=== PATIENT | male | born 1945 | race Caucasian/White ===

== ENCOUNTER 2020-12-13 15:32 | Emergency (ER) | payer MEDICARE, SELFPAY ==
[2020-12-13 15:42] VITALS: BP 171/72; PULSE 53; RESP 21; TEMP 36.8; O2SAT 97
--- NOTE | 2020-12-13 15:43 | ED.MALEGU ---
HPI - Male Genitourinary General Chief complaint: Urogenital-Male Stated complaint: uti Time Seen by Provider: 12/13/20 15:43 Source: patient and RN notes reviewed Mode of arrival: ambulatory Limitations: no limitations History of Present Illness HPI Narrative: 75-year-old male presents to the [facility] with complaints of urinary symptoms for the last 5 or 6 days. Patient has a history of enlarged prostate and states he does get UTIs every now and then. Patient also is concerned about his right lower leg. Patient states that he has been taking his furosemide and his left leg the swelling went away but the right leg did not. Denies any injury. Mid calf to toes +2 edema, pitting red, warm to touch. States that he has been taking his furosemide and it is not getting any better. Patient denies any fevers, nausea, vomiting or diarrhea. Denies any chest pain or shortness of breath. Related Data Home Medications Medication Instructions Recorded Confirmed clopidogrel 75 mg PO DAILY 12/13/20 12/13/20 furosemide 40 mg PO DAILY 12/13/20 12/13/20 hydrochlorothiazide 12.5 mg PO DAILY 12/13/20 12/13/20 nebivolol [Bystolic] 10 mg PO DAILY 12/13/20 12/13/20 pravastatin 40 mg PO DAILY 12/13/20 12/13/20 ramipril 10 mg PO DAILY 12/13/20 12/13/20 tamsulosin 0.4 mg PO DAILY 12/13/20 12/13/20 Allergies Allergy/AdvReac Type Severity Reaction Status Date / Time No Known Allergies Allergy Mild Unverified 12/13/20 16:12 Review of Systems Review of Systems: All systems reviewed & are unremarkable except as noted in HPI and below Constitutional: Constitutional: Reports no additional constitutional complaints, Denies chills and Denies fever(s) Eyes: Eyes: Reports no additional eye complaints ENT: Reports system reviewed and no additional complaints, except as documented Cardiovascular: Cardiovascular: Reports no additional cardiovascular complaints and Denies chest pain Respiratory: Respiratory: Reports no additional respiratory complaints, Denies cough and Denies dyspnea Gastrointestinal: Gastrointestinal: Reports no additional gastrointestinal complaints, Denies abdominal pain, Denies nausea and Denies vomiting Genitourinary: Genitourinary: Reports as per HPI, Reports dysuria, Denies testicular pain and Reports urinary frequency Musculoskeletal: Musculoskeletal: Reports as per HPI Comments: Right mid calf to toes red, discolored, +2 pitting edema Integumentary/Breasts: Skin/Breast: Reports as per HPI and Reports erythema (Right lower leg) Neurologic: Reports system reviewed and no additional complaints, except as documented Psychiatric: Psychiatric: Reports no additional psychiatric complaints Allergic/Immunologic: Allergic/Immunologic: Reports no additional allergic/immunologic complaints [facility] Past Medical History Medical History (Updated 12/13/20 @ 19:14 by Kerri Lawrence) Enlarged prostate History of recurrent UTIs Hypertension Social History Social History Alcohol intake: current Comments At the time of my signature, I reviewed and agree with the nursing past medical, surgical, social, and family history. There is no relevant family history pertinent to the patient complaint. Exam Const: General: no acute distress, alert and ill appearing chronically Orientation/consciousness: patient oriented x3 Neck: Neck: normal visual inspection and no lymphadenopathy Chest: Chest palpation & inspection: normal inspection of the chest Resp: Effort & Inspection: normal respiratory effort Auscultation: clear to auscultation bilaterally Cardio: Rate: regular rate Rhythm: regular rhythm GI: GI Palp: Yes Soft to palpation and No Tenderness to palpation present (GI) Back/Spine/Pelvis: Back: no CVA tenderness Skin: Other: Redness noted to the right lower extremity. Bruising noted to the ED lateral aspect right lower leg. +2 pitting edema Neuro: General: patient oriented x3, move
== END 2020-12-13 16:30 | disposition short-term general hospital (02) ==
PROVIDERS: Emergency Provider Nurse Practitioner
DX: N30.01 Acute cystitis with hematuria (principal); R60.0 Localized edema; N40.0 Benign prostatic hyperplasia without lower urinary tract symptoms; I10 Essential (primary) hypertension
CPT/HCPCS: 81003; 99212; G0463

== ENCOUNTER 2020-12-13 17:04 | Emergency (ER) | payer MEDICARE, SELFPAY ==
--- NOTE | ~2020-12-13 | XR_ITS ---
EXAMINATION: XR ankle RT min 3V, XR foot RT min 3V DATE: 12/13/2020 18:52 INDICATION: Lateral ankle swelling post twisting injury TECHNIQUE: 1. Anteroposterior, mortise, additional oblique and lateral view of the right ankle were obtained. 2. Dorsoplantar, two oblique and lateral views of the right foot were obtained. COMPARISON: None. FINDINGS: Alignment of the right foot and ankle is normal. Nondisplaced oblique fracture of the distal right fi bula which exits the medial cortex at the level of the tibiotalar joint line. No fractures in the rig ht foot. Moderate osteoarthritis with subarticular cystic change at the first-third tarsal metatarsal joints. Mild osteoarthritis at the right tibiotalar, first metatarsophalangeal and several interphal angeal joints. Additional subarticular cystic changes at the talar dome both medially and laterally. No ankle joint effusion. Prominent soft tissue swelling over the dorsum of the foot extending about t he ankle both medially and laterally. IMPRESSION: 1. Minimally displaced oblique fracture of the distal left fibula consistent with a Vargas type B inju ry pattern. 2. 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 Reviewed, dictated and finalized at location A. IMPRESSION: 1. Minimally displaced oblique fracture of the distal left fibula consistent wi th a Vargas type B injury pattern. 2. 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
[2020-12-13 17:10] VITALS: BP 108/85; PULSE 94; RESP 18; TEMP 36.7; O2SAT 96
--- NOTE | 2020-12-13 18:34 | ED.LOWEXIN ---
HPI - Extremity Injury (Lower) General Chief Complaint: Extremity Injury, Lower Stated Complaint: R ankle pain/swelling from express care Time Seen by Provider: 12/13/20 18:25 Source: patient and RN notes reviewed Mode of arrival: ambulatory Limitations: no limitations History of Present Illness HPI Narrative: Patient 75 years old white male presents with right ankle injury, patient got out of bed and go to the bathroom, somehow twisted right ankle during that process on December 02. Which is 11 days ago. Patient went to urgent care today for urinary tract infection, then referred to us because of the swelling ankle. Patient reports initially the ankle was so painful and gradually is getting better. Patient denies any fever, chills, nausea, vomiting, shortness of breath, chest pain. Patient is fully vaccinated for COVID-19. Patient is telling me that his urine at the urgent care showed infection and was told that he would receive a prescription of antibiotic when he comes to us today. Currently patient unable to urinate. Related Data Home Medications Medication Instructions Recorded Confirmed clopidogrel 75 mg PO DAILY 12/13/20 12/13/20 furosemide 40 mg PO DAILY 12/13/20 12/13/20 hydrochlorothiazide 12.5 mg PO DAILY 12/13/20 12/13/20 nebivolol [Bystolic] 10 mg PO DAILY 12/13/20 12/13/20 pravastatin 40 mg PO DAILY 12/13/20 12/13/20 ramipril 10 mg PO DAILY 12/13/20 12/13/20 tamsulosin 0.4 mg PO DAILY 12/13/20 12/13/20 Allergies Allergy/AdvReac Type Severity Reaction Status Date / Time No Known Allergies Allergy Mild Unverified 12/13/20 16:12 Review of Systems Review of Systems: CONSTITUTIONAL: Denies fever, chills, or sweats. EYES: Denies visual changes, redness, or discharge. ENT: Denies rhinorrhea, congestion, sore throat, or otalgia. CARDIOVASCULAR: Denies chest pain, palpitations, or edema. RESPIRATORY: Denies cough or dyspnea. GASTROINTESTINAL: Denies abdominal pain, nausea, vomiting, or diarrhea. GENITOURINARY: Denies dysuria or hematuria. SKIN: Denies rash or itching. MUSCULOSKELETAL: Denies back pain, joint pain, or myalgia. NEUROLOGIC: Denies headache, numbness, or weakness. PSYCHIATRIC: Denies anxiety or depression. [facility] Past Medical History Medical History (Updated 12/13/20 @ 21:20 by Kymberly Love MD) Enlarged prostate History of recurrent UTIs Hypertension Social History Social History Alcohol intake: current Exam Narrative: General appearance: Well-developed, well-nourished Skin: Normal color Head: Normocephalic, nontraumatic Eyes: Clear conjunctiva ENT: Oropharynx normal, ears normal, nose normal Neck: Supple, nontender Chest and respiratory: Airway patent, no respiratory distress, no accessory muscle use Heart: Regular rate/rhythm Abdomen: Soft, nontender, no organomegaly, quiet bowel sounds Vascular: Normal peripheral pulses, normal capillary refill. Musculoskeletal: Normal range of motion, nontender back. Right ankle and foot showed 2+ edema, ecchymosis, no deformity, no tenderness or swelling above that level. Neurologic: Alert and oriented ?3, [employer]IDENCE DIRECT[employer] is normal as tested, no gross motor deficit Course Course Emergency Course: Stable Vital Signs Vital signs: Vital Signs Temperature 36.7 C 12/13/20 17:10 Pulse Rate 94 12/13/20 17:10 Respiratory Rate 18 12/13/20 17:10 Blood Pressure 108/85 12/13/20 17:10 Pulse Oximetry 96 12/13/20 17:10 Temperature 36.7 C 12/13/20 17:10 Pulse Rate 94 12/13/20 17:10 Respiratory Rate 18 12/13/20 17:10 Blood Pressure 108/85 12/13/20 17:10 Pulse Oximetry 96 12/13/20 17:10 MDM - Extremity
[2020-12-13 21:35] VITALS: BP 118/72; PULSE 82; RESP 20; O2SAT 98
== END 2020-12-13 21:35 | disposition home or self-care (01) ==
PROVIDERS: Emergency Provider Emergency Medicine
DX: I10 Essential (primary) hypertension (principal); S82.831A Other fracture of upper and lower end of right fibula, initial encounter for closed fracture; N39.0 Urinary tract infection, site not specified; X50.1XXA Overexertion from prolonged static or awkward postures, initial encounter
CPT/HCPCS: 29515; 73610; 73630; 81003; 99284

== ENCOUNTER 2021-05-28 17:04 | Emergency (ER) | payer MEDICARE, SELFPAY ==
[2021-05-28 17:16] VITALS: BP 201/76; PULSE 78; RESP 17; TEMP 36.5; O2SAT 100
--- NOTE | 2021-05-28 17:29 | ED.MALEGU ---
HPI - Male Genitourinary General Chief complaint: Urogenital-Male Stated complaint: UTI Time Seen by Provider: 05/28/21 17:15 Source: patient, RN notes reviewed and old records reviewed Mode of arrival: ambulatory Limitations: no limitations History of Present Illness HPI Narrative: 75-year-old male with a history of prostate issues and UTIs presents for several days of dysuria, frequency, urgency and burning. Patient states that when he wants to go out he stopped taking his furosemide, Flomax and hydrochlorothiazide. MD Complaint: dysuria Related Data Home Medications Medication Instructions Recorded Confirmed clopidogrel 75 mg PO DAILY 12/13/20 05/28/21 furosemide 40 mg PO DAILY 12/13/20 05/28/21 hydrochlorothiazide 12.5 mg PO DAILY 12/13/20 05/28/21 nebivolol [Bystolic] 10 mg PO DAILY 12/13/20 05/28/21 pravastatin 40 mg PO DAILY 12/13/20 05/28/21 ramipril 10 mg PO DAILY 12/13/20 05/28/21 tamsulosin 0.4 mg PO DAILY 12/13/20 05/28/21 Allergies Allergy/AdvReac Type Severity Reaction Status Date / Time No Known Allergies Allergy Mild Verified 01/16/21 11:38 Review of Systems Review of Systems: All systems reviewed & are unremarkable except as noted in HPI and below Constitutional: Constitutional: Reports no additional constitutional complaints Eyes: Eyes: Reports no additional eye complaints ENT: Reports system reviewed and no additional complaints, except as documented Cardiovascular: Cardiovascular: Reports no additional cardiovascular complaints and Denies chest pain Respiratory: Respiratory: Reports no additional respiratory complaints, Reports no additional respiratory complaints, Denies chest congestion, Denies cough and Denies dyspnea Gastrointestinal: Gastrointestinal: Reports no additional gastrointestinal complaints, Denies abdominal pain and Denies belching Genitourinary: Genitourinary: Reports as per HPI, Denies hematuria, Reports oliguria, Reports dysuria, Denies flank pain, Reports urinary frequency and Reports urinary urgency Musculoskeletal: Musculoskeletal: Reports no additional musculoskeletal complaints, Denies back pain and Denies myalgias Integumentary/Breasts: Skin/Breast: Reports system reviewed and no additional complaints, except as docu Neurologic: Reports system reviewed and no additional complaints, except as documented Psychiatric: Psychiatric: Reports no additional psychiatric complaints Allergic/Immunologic: Allergic/Immunologic: Reports no additional allergic/immunologic complaints PMFSH Past Medical History Medical History Enlarged prostate History of cataract History of recurrent UTIs Hypertension Surgical History Surgical History History of hernia repair Social History Social History Smoking status: Unknown if ever smoked Alcohol intake: current Comments At the time of my signature, I reviewed and agree with the nursing past medical, surgical, social, and family history. There is no relevant family history pertinent to the patient complaint. Exam Const: General: cooperative, no acute distress, alert, ill appearing chronically and poor hygiene Nutritional Appearance: average body habitus Orientation/consciousness: patient oriented x3 Limitations: no limitations Eyes: General: appearance normal, both eyes and all related structures Alignment and Position: alignment normal Chest: Chest palpation & inspection: normal inspection of the chest Resp: Effort & Inspection: normal respiratory effort Back/Spine/Pelvis: Back: no CVA tenderness Skin: General skin exam: normal color Rashes: no rashes Neuro: General: patient oriented x3 Speech: normal speech Gait exam (Neuro): Normal gait present Extrem: General: normal to inspection and full ROM Psych: Appearance: grossly normal and disheveled Attitude: c
[2021-05-28 17:30] VITALS: BP 162/84
== END 2021-05-28 17:38 | disposition home or self-care (01) ==
PROVIDERS: Emergency Provider Nurse Practitioner; PCP Internal Medicine
DX: N39.0 Urinary tract infection, site not specified (principal); N40.0 Benign prostatic hyperplasia without lower urinary tract symptoms; I10 Essential (primary) hypertension; H26.9 Unspecified cataract
CPT/HCPCS: 81003; 87077; 87086; 87181; 87186; 99213; G0463

== ENCOUNTER 2022-01-25 13:52 | Emergency (ER) | payer MEDICARE, SELFPAY ==
--- NOTE | 2022-01-25 13:58 | ED.FEMALEGU ---
HPI - Female Genitourinary General Chief complaint: Urogenital-Male Stated complaint: painful urination Time Seen by Provider: 01/25/22 14:20 Source: patient and RN notes reviewed Mode of arrival: ambulatory Limitations: no limitations History of Present Illness HPI Narrative: 76-year-old male presents with concern for burning with urination. He reports 3 to 4-day history of symptoms. He reports he had to take a diuretic for another reason which caused him ear splints. He denies back pain, abdominal pain, nausea, vomiting, fever, bodies, chills, sweats. He denies hematuria or urgency. MD elicited complaint: dysuria Related Data Home Medications Medication Instructions Recorded Confirmed clopidogrel 75 mg tablet 75 mg PO DAILY 12/13/20 01/25/22 furosemide 40 mg tablet 40 mg PO DAILY 12/13/20 01/25/22 nebivolol 10 mg tablet (Bystolic) 10 mg PO DAILY 12/13/20 01/25/22 pravastatin 40 mg tablet 40 mg PO DAILY 12/13/20 01/25/22 tamsulosin 0.4 mg capsule 0.4 mg PO DAILY 12/13/20 01/25/22 amlodipine 10 mg tablet 10 mg DIRECTED 01/25/22 01/25/22 ezetimibe 10 mg tablet 10 mg DIRECTED 01/25/22 01/25/22 sacubitril 24 mg-valsartan 26 mg 1 tablet DIRECTED 01/25/22 01/25/22 tablet (Entresto) Allergies Allergy/AdvReac Type Severity Reaction Status Date / Time No Known Allergies Allergy Mild Verified 01/16/21 11:38 Review of Systems Review of Systems: CONSTITUTIONAL: Denies malaise, chills, sweats, or fever. CARDIOVASCULAR: Denies chest pain, palpitations, or edema. RESPIRATORY: Denies cough or dyspnea. GASTROINTESTINAL: Denies abdominal pain, nausea, vomiting, diarrhea GENITOURINARY: Reports dysuria, frequency. Denies urgency, suprapubic pressure. Denies flank pain or hematuria. SKIN: Denies rash or itching. MUSCULOSKELETAL: Denies back pain or myalgia. All systems reviewed & are unremarkable except as noted in HPI and below PMFSH Past Medical History Medical History Enlarged prostate History of cataract History of recurrent UTIs Hypertension Surgical History Surgical History History of hernia repair Social History Social History Smoking status: Unknown if ever smoked Alcohol intake: current Comments At time of signature, agree with nursing past medical, surgical, social and family history. There is no relevant family history pertinent to the presenting complaint Exam Narrative: GENERAL: Well-appearing, well-nourished, and in no acute distress. HEAD: Normocephalic. EYES: PERRLA, conjunctivae clear. NECK: Supple. No lymphadenopathy CHEST: Clear to auscultation. No respiratory distress. HEART: Regular rate and rhythm. ABDOMEN: Soft, nontender upon palpation, nondistended, normal active bowel sounds, no palpable or pulsatile masses, no guarding. No CVA tenderness SKIN: Warm, dry, no rash. NEURO: Alert and oriented x3. PSYCH: Normal mood and affect Course Course Emergency Course: Patient is aware of diagnosis, understands and agrees to treatment plan. Anticipatory guidance given. Patient agrees to follow-up as directed and is aware of reasons to seek care at the emergency department. Portions of this record may have been created with voice recognition software Level of Care: Express Care Visit Vital Signs Vital signs: Vital Signs Temperature 97.3 F L 01/25/22 14:04 Pulse Rate 66 01/25/22 14:04 Respiratory Rate 18 01/25/22 14:04 Blood Pressure 168/58 H 01/25/22 14:04 Pulse Oximetry 99 01/25/22 14:04 Oxygen Delivery Room Air 01/25/22 14:04 Temperature 97.3 F L 01/25/22 14:04 Pulse Rate 66 01/25/22 14:04 Respiratory Rate 18 01/25/22 14:04 Blood Pressure 168/58 H 01/25/22 14:04 Pulse Oximetry 99 01/25/22 14:04 Oxygen Delivery Room Air 01/25/22 14:04 Reviewed. MDM - Female Genitourinary
[2022-01-25 14:04] VITALS: BP 168/58; PULSE 66; RESP 18; TEMP 36.3; O2SAT 99
== END 2022-01-25 14:38 | disposition home or self-care (01) ==
PROVIDERS: Emergency Provider Nurse Practitioner; PCP Internal Medicine
DX: N39.0 Urinary tract infection, site not specified (principal); I10 Essential (primary) hypertension
CPT/HCPCS: 81003; 87086; 87088; 99213; G0463

== ENCOUNTER 2022-05-15 11:35 | Emergency (ER) | payer MEDICARE, SELFPAY ==
--- NOTE | 2022-05-15 11:46 | PC.NURSE ---
in br to obtain ua spec.
[2022-05-15 11:57] VITALS: BP 125/62; PULSE 58; RESP 16; TEMP 36.6; O2SAT 97
--- NOTE | 2022-05-15 12:25 | ED.MALEGU ---
HPI - Male Genitourinary General Chief complaint: Urogenital-Male Stated complaint: uti Time Seen by Provider: 05/15/22 12:25 Source: patient, RN notes reviewed and old records reviewed Mode of arrival: ambulatory Limitations: no limitations History of Present Illness HPI Narrative: 76-year-old male presents to the [facility] with for 5 days of urinary frequency, irritation, feeling like he does not empty his bladder. Has a history of prostate issues. Denies any chest pain or abdominal pain. No nausea vomiting or diarrhea. Denies fevers Has not taken anything for pain Onset (ago): day(s) (4-5) Related Data Home Medications Medication Instructions Recorded Confirmed clopidogrel 75 mg tablet 75 mg PO DAILY 12/13/20 01/25/22 furosemide 40 mg tablet 40 mg PO DAILY 12/13/20 01/25/22 nebivolol 10 mg tablet (Bystolic) 10 mg PO DAILY 12/13/20 01/25/22 pravastatin 40 mg tablet 40 mg PO DAILY 12/13/20 01/25/22 tamsulosin 0.4 mg capsule 0.4 mg PO DAILY 12/13/20 01/25/22 amlodipine 10 mg tablet 10 mg DIRECTED 01/25/22 01/25/22 ezetimibe 10 mg tablet 10 mg DIRECTED 01/25/22 01/25/22 sacubitril 24 mg-valsartan 26 mg 1 tablet DIRECTED 01/25/22 01/25/22 tablet (Entresto) Allergies Allergy/AdvReac Type Severity Reaction Status Date / Time niacin Allergy Flushing Verified 05/15/22 11:54 Review of Systems Review of Systems: All systems reviewed & are unremarkable except as noted in HPI and below Constitutional: Constitutional: Reports no additional constitutional complaints Eyes: Eyes: Reports no additional eye complaints ENT: Reports system reviewed and no additional complaints, except as documented Cardiovascular: Cardiovascular: Reports no additional cardiovascular complaints, Denies chest pain and Denies dyspnea Respiratory: Respiratory: Reports no additional respiratory complaints, Denies chest congestion, Denies cough and Denies dyspnea Gastrointestinal: Gastrointestinal: Reports no additional gastrointestinal complaints, Denies abdominal pain, Denies nausea and Denies vomiting Genitourinary: Genitourinary: Reports as per HPI and Reports dysuria Musculoskeletal: Musculoskeletal: Reports no additional musculoskeletal complaints Integumentary/Breasts: Skin/Breast: Reports system reviewed and no additional complaints, except as docu Neurologic: Reports system reviewed and no additional complaints, except as documented Psychiatric: Psychiatric: Reports no additional psychiatric complaints Allergic/Immunologic: Allergic/Immunologic: Reports no additional allergic/immunologic complaints PMFSH Past Medical History Medical History Enlarged prostate History of cataract History of recurrent UTIs Hypertension Surgical History Surgical History History of hernia repair Social History Social History Smoking status: Unknown if ever smoked Alcohol intake: current Comments At the time of my signature, I reviewed and agree with the nursing past medical, surgical, social, and family history. There is no relevant family history pertinent to the patient complaint. Exam Const: General: cooperative, no acute distress, well developed, alert, ill appearing chronically; not acutely, poor hygiene, uncomfortable and well nourished Nutritional Appearance: well nourished Orientation/consciousness: patient oriented x3 Limitations: no limitations HENMT: Head: normal to inspection Ears: hearing grossly normal bilaterally and external ears normal Face/Nose/Sinus: Normal external nose present, Normal nares present, Normal nasal mucous membranes and turbinates present and normal facial exam Face and sinus: normal facial exam Mouth: Yes Normal oral and palatal mucosa present, Yes lip normal and Yes moist mucous membranes Throat: posterior oropharynx normal and
== END 2022-05-15 12:35 | disposition home or self-care (01) ==
PROVIDERS: Emergency Provider Nurse Practitioner; PCP Internal Medicine
DX: N30.01 Acute cystitis with hematuria (principal); N40.0 Benign prostatic hyperplasia without lower urinary tract symptoms; I10 Essential (primary) hypertension
CPT/HCPCS: 81003; 87086; 87088; 99213; G0463

== ENCOUNTER 2022-08-14 18:07 | Emergency (ER) | payer MEDICARE, MEDICAID, SELFPAY ==
--- NOTE | 2022-08-14 18:18 | PC.NURSE ---
in br to obtain ua spec.
[2022-08-14 18:27] VITALS: BP 124/59; PULSE 57; RESP 16; TEMP 36.3; O2SAT 97
--- NOTE | 2022-08-14 18:45 | ED.GENADULT ---
HPI - General Adult General Chief complaint: Urogenital-Male Stated complaint: UTI Source: patient Mode of arrival: ambulatory Limitations: no limitations History of Present Illness HPI narrative: Patient presents for evaluation of urinary symptoms. He indicates that he has chronic urinary hesitancy secondary to BPH, for which he takes flomax. He also has urinary frequency which he attributes to his diuretic use. He has noted dysuria only at the end of his urinary stream for the last 1-1.5 weeks. His urine appears cloudy. He denies any hematuria, low back pain, abdominal pain, fever, chills, nausea, vomiting. He has had urinary tract infections in the past. Related Data Home Medications Medication Instructions Recorded Confirmed clopidogrel 75 mg tablet 75 mg PO DAILY 12/13/20 01/25/22 furosemide 40 mg tablet 40 mg PO DAILY 12/13/20 01/25/22 nebivolol 10 mg tablet (Bystolic) 10 mg PO DAILY 12/13/20 01/25/22 pravastatin 40 mg tablet 40 mg PO DAILY 12/13/20 01/25/22 tamsulosin 0.4 mg capsule 0.4 mg PO DAILY 12/13/20 01/25/22 amlodipine 10 mg tablet 10 mg DIRECTED 01/25/22 01/25/22 ezetimibe 10 mg tablet 10 mg DIRECTED 01/25/22 01/25/22 sacubitril 24 mg-valsartan 26 mg 1 tablet DIRECTED 01/25/22 01/25/22 tablet (Entresto) spironolactone 50 mg tablet mg 08/14/22 Allergies Allergy/AdvReac Type Severity Reaction Status Date / Time niacin Allergy Flushing Verified 08/14/22 18:14 Review of Systems Review of Systems: CONSTITUTIONAL: Denies fever, chills, or sweats. EYES: Denies visual changes, redness, or discharge. ENT: Denies rhinorrhea, congestion, sore throat, or otalgia. CARDIOVASCULAR: Denies chest pain, palpitations, or edema. RESPIRATORY: Denies cough or dyspnea. GASTROINTESTINAL: Denies abdominal pain, nausea, vomiting, or diarrhea. GENITOURINARY: Reports cloudy urine and dysuria only at the end of urinary stream. Reports chronic urinary hesitancy and urinary frequency. SKIN: Denies rash or itching. MUSCULOSKELETAL: Denies back pain, joint pain, or myalgia. NEUROLOGIC: Denies headache, numbness, dizziness, or weakness. PSYCHIATRIC: Denies anxiety or depression. [facility] Past Medical History Medical History Enlarged prostate History of cataract History of recurrent UTIs Hypertension Surgical History Surgical History History of hernia repair Family History Family History Mother Family history non-contributory Social History Social History Smoking packs per day: 1 Smoking cigarettes per day: 20.0 Smoking status: Current every day smoker Tobacco type: cigarettes Alcohol intake: current Substance use: never Living arrangements: alone Gender identity (if verbalized by the patient): Male Exam Narrative: GENERAL: Well-appearing, well-nourished, and in no acute distress. HEAD: Normocephalic, atraumatic. EYES: PERRLA and EOMI. ENT: Nares clear, no rhinorrhea or epistaxis. Mucous membranes moist. Oropharynx without tonsillar hypertrophy exudate or other lesions. Bilateral TMs pearly denis nonbulging NECK: Supple. No adenopathy or masses. No carotid bruits or JVD CHEST: Clear to auscultation. No respiratory distress. No wheezes rales or rhonchi HEART: Regular rate and rhythm. No murmur heard. Normal peripheral pulses. ABDOMEN: Soft, nontender, nondistended, normal active bowel sounds. EXTREMITIES: Normal range of motion. No edema. SKIN: Warm, dry, no rash. NEURO: No focal deficits. Alert and oriented x3. PSYCH: Normal mood and affect. Course Course Emergency Course: This is a 76-year-old male who presented for evaluation of dysuria and cloudy colored urine. He has leukocytes present on urine today. Will send for urine culture.
== END 2022-08-14 18:48 | disposition home or self-care (01) ==
PROVIDERS: Emergency Provider Nurse Practitioner; PCP Internal Medicine
DX: N39.0 Urinary tract infection, site not specified (principal); N40.0 Benign prostatic hyperplasia without lower urinary tract symptoms; I10 Essential (primary) hypertension; H26.9 Unspecified cataract; F17.210 Nicotine dependence, cigarettes, uncomplicated
CPT/HCPCS: 81003; 87086; 99213; G0463

== ENCOUNTER 2023-02-25 13:38 | Emergency (ER) | payer MEDICARE, MEDICAID, SELFPAY ==
--- NOTE | ~2023-02-25 | XR_ITS ---
XR abdomen/kub 1V 02/25/2023 15:20 Indication: Constipation Procedure: KUB Comparison: No prior studies for comparison. Findings: There are bilateral calcifications overlying the kidneys which may represent renal stones o r vascular calcifications. There is severe lumbar spondylosis with levoscoliosis. There is atheroscle rosis in the pelvis. Nonobstructive bowel gas pattern. Moderate colonic fecal loading. Impression: 1: Ill-defined calcifications overlying the kidneys which may be vascular or renal stones. Reviewed, dictated and finalized at location B. Impression: 1: Ill-defined calcifications overlying the kidneys which may be vascular or re nal stones.
[2023-02-25 13:53] VITALS: BP 154/101; PULSE 104; RESP 20; TEMP 36.6; O2SAT 97
[2023-02-25 15:24] LABS: Appearance Urine Cloudy (Clear); Bacteria Urine 4+ /hpf; Bilirubin Urine Negative (Negative); Blood Urine 3+ (Negative); Color Urine Yellow (Yellow); Glucose Urine UA Trace mg/dL (Negative); Ketones Urine Negative (Negative); Leukocyte Esterase Ur 2+ LEU/UL (Negative); Nitrate Urine Negative (Negative); Non Pathogenic Casts 0-2; Protein Urine Trace mg/dL (Negative); RBC Urine >100 /hpf (0-2); Squamous Epithelial Cell Urine None seen /hpf (Few); WBC Urine 21-50 /hpf; pH Urine 6.5 (5.0-9.0)
[2023-02-25 15:30] LABS: Add Urine Microscopic? YES
--- NOTE | 2023-02-25 16:12 | ED.ABDPAIN ---
HPI - Abdominal Pain General Chief Complaint: Abdominal Pain Stated Complaint: constipated X2 days-problem urination Time Seen by Provider: 02/25/23 14:42 History of Present Illness HPI narrative: Pt says he has been unable to void well for awhile but is now having trouble voiding at all and has lower abdominal pain. Pt says he also is constipated. Pt denies vomiting or black or bloody stools. Pt had malave placed after bladder scan revealed 800 ml of urine in bladder and pt pain resolved. Pt on flomax but never seen urologist. Related Data Home Medications Medication Instructions Recorded Confirmed clopidogrel 75 mg tablet 75 mg PO DAILY 12/13/20 01/25/22 furosemide 40 mg tablet 40 mg PO DAILY 12/13/20 01/25/22 nebivolol 10 mg tablet (Bystolic) 10 mg PO DAILY 12/13/20 01/25/22 pravastatin 40 mg tablet 40 mg PO DAILY 12/13/20 01/25/22 tamsulosin 0.4 mg capsule 0.4 mg PO DAILY 12/13/20 01/25/22 amlodipine 10 mg tablet 10 mg DIRECTED 01/25/22 01/25/22 ezetimibe 10 mg tablet 10 mg DIRECTED 01/25/22 01/25/22 sacubitril 24 mg-valsartan 26 mg 1 tablet DIRECTED 01/25/22 01/25/22 tablet (Entresto) spironolactone 50 mg tablet mg 08/14/22 Allergies Allergy/AdvReac Type Severity Reaction Status Date / Time niacin Allergy Flushing Verified 02/25/23 13:38 PMFSH Past Medical History Medical History Enlarged prostate History of cataract History of recurrent UTIs Hypertension Surgical History Surgical History History of hernia repair Family History Family History Mother Family history non-contributory Social History Social History Smoking packs per day: 1 Smoking cigarettes per day: 20.0 Smoking status: Current every day smoker Tobacco type: cigarettes Alcohol intake: current Substance use: never Living arrangements: alone Gender identity (if verbalized by the patient): Male Exam Const: General: healthy appearing Nutritional Appearance: thin Orientation/consciousness: patient oriented x3 Limitations: no limitations Resp: Effort & Inspection: normal respiratory effort Auscultation: clear to auscultation bilaterally Cardio: Rate: regular rate Rhythm: regular rhythm GI: GI Palp: Yes Soft to palpation and No Tenderness to palpation present (GI) (malave already placed) Auscultation: normal bowel sounds Rectal Exam: No hemorrhoids : Penis: Yes normal penis (some blood from around malave) Urinary Catheter: Urinary Catheter: patent and draining and urine dark Back/Spine/Pelvis: Back: no CVA tenderness Skin: General skin exam: normal color Wounds: no wounds Neuro: General: patient oriented x3, moves all extremities and no focal motor deficits Cranial nerves: Yes Nystagmus not present Extrem: General: normal to inspection and no clubbing, cyanosis or edema Psych: Mental Status: mental status grossly normal Affect: normal affect Attitude: cooperative Course Vital Signs Vital signs: Vital Signs Temperature 98 F 02/25/23 13:53 Pulse Rate 104 H 02/25/23 13:53 Respiratory Rate 20 02/25/23 13:53 Blood Pressure 154/101 H 02/25/23 13:53 Pulse Oximetry 97 02/25/23 13:53 Oxygen Delivery Room Air 02/25/23 13:53 Temperature 98 F 02/25/23 13:53 Pulse Rate 104 H 02/25/23 13:53 Respiratory Rate 20 02/25/23 13:53 Blood Pressure 154/101 H 02/25/23 13:53 Pulse Oximetry 97 02/25/23 13:53 Oxygen Delivery Room Air 02/25/23 13:53 MDM - Abdominal Pain MDM Narrative Medical decision making narrative: bph with outlet obstruction causing urinary retention possible uti. malave relieved pain. will start on antibiotics and have urology follow up. Lab Data Labs: Lab Results 02/25/23 Range/Units 15:12
--- NOTE | 2023-02-25 17:07 | PC.NURSE ---
This RN changed pts malave bag to a leg bag.
== END 2023-02-25 17:08 | disposition home or self-care (01) ==
PROVIDERS: Emergency Provider Emergency Medicine; PCP Internal Medicine
DX: N40.1 Benign prostatic hyperplasia with lower urinary tract symptoms (principal); R33.8 Other retention of urine; N39.0 Urinary tract infection, site not specified; I10 Essential (primary) hypertension; F17.210 Nicotine dependence, cigarettes, uncomplicated
CPT/HCPCS: 51702; 74018; 81001; 87086; 87088; 99283

== ENCOUNTER 2023-03-09 15:21 | Emergency (ER) | payer MEDICARE, MEDICAID, SELFPAY ==
[2023-03-09 15:27] VITALS: BP 153/67; PULSE 78; RESP 16; TEMP 36.6; O2SAT 96
--- NOTE | 2023-03-09 16:01 | ED.MALEGU ---
HPI - Male Genitourinary General Chief complaint: Urogenital-Male Stated complaint: catheter issues Time Seen by Provider: 03/09/23 15:43 Source: patient Mode of arrival: ambulatory Limitations: no limitations History of Present Illness HPI Narrative: Patient is a 77 y/o male who presents to the ED with c/o catheter problem. Patient was seen in the ED on 02/25 and diagnosed with acute urinary retention. Chan catheter was placed. Patient reports he has been doing well with the catheter, but the StatLock fell off a couple of days ago. Patient was concerned that the Chan catheter with fall out or ripped out if it got caught on something. He presented today due to concern for this. Patient denies any pain, changes in his urine appearance/color/amount, nausea, vomiting, fevers. Patient has follow-up with urology on 03/13. Related Data Home Medications Medication Instructions Recorded Confirmed clopidogrel 75 mg tablet 75 mg PO DAILY 12/13/20 01/25/22 furosemide 40 mg tablet 40 mg PO DAILY 12/13/20 01/25/22 nebivolol 10 mg tablet (Bystolic) 10 mg PO DAILY 12/13/20 01/25/22 pravastatin 40 mg tablet 40 mg PO DAILY 12/13/20 01/25/22 tamsulosin 0.4 mg capsule 0.4 mg PO DAILY 12/13/20 01/25/22 amlodipine 10 mg tablet 10 mg DIRECTED 01/25/22 01/25/22 ezetimibe 10 mg tablet 10 mg DIRECTED 01/25/22 01/25/22 sacubitril 24 mg-valsartan 26 mg 1 tablet DIRECTED 01/25/22 01/25/22 tablet (Entresto) spironolactone 50 mg tablet mg 08/14/22 Allergies Allergy/AdvReac Type Severity Reaction Status Date / Time niacin Allergy Flushing Verified 02/25/23 13:38 Review of Systems Review of Systems: CONSTITUTIONAL: Denies fever, chills, or sweats. GASTROINTESTINAL: Denies abdominal pain, nausea, vomiting. GENITOURINARY: See HPI. MUSCULOSKELETAL: Denies back pain. All systems reviewed & are unremarkable except as noted in HPI and below PMFSH Past Medical History Medical History Enlarged prostate History of cataract History of recurrent UTIs Hypertension Surgical History Surgical History History of hernia repair Family History Family History Mother Family history non-contributory Social History Social History Smoking packs per day: 1 Smoking cigarettes per day: 20.0 Smoking status: Current every day smoker Tobacco type: cigarettes Alcohol intake: current Substance use: never Living arrangements: alone Gender identity (if verbalized by the patient): Male Exam Narrative: GENERAL: Well appearing, well-nourished, non-toxic, in no acute distress. HEAD: Normocephalic, atraumatic. NECK: Supple. No adenopathy, no masses. RESPIRATORY: Airway patent, respirations nonlabored. CARDIOVASCULAR: RRR MUSCULOSKELETAL: Moves all extremities. No gross deformities. SKIN: Warm, dry, normal color. No rashes. NEURO: A&O X3. Speech clear. Cranial nerves II-XII grossly intact. No ataxic movements. PSYCHIATRIC: Appropriate mood and affect. Normal interaction. Course Vital Signs Vital signs: Vital Signs Temperature 97.8 F 03/09/23 15:27 Pulse Rate 78 03/09/23 15:27 Respiratory Rate 16 03/09/23 15:27 Blood Pressure 153/67 H 03/09/23 15:27 Pulse Oximetry 96 03/09/23 15:27 Temperature 97.8 F 03/09/23 15:27 Pulse Rate 78 03/09/23 15:27 Respiratory Rate 16 03/09/23 15:27 Blood Pressure 153/67 H 03/09/23 15:27 Pulse Oximetry 96 03/09/23 15:27 MDM - Male Genitourinary MDM Narrative Medical decision making narrative: Patient presented to ED due to concern that StatLock fell off of Chan catheter. Cahn catheter tubing was changed in the ED, new leg bag given. Patient with follow-up on 03/13 with urology. Patient denying any change
--- NOTE | 2023-03-09 16:05 | PC.NURSE ---
Given a new leg bag at this time
== END 2023-03-09 16:49 | disposition home or self-care (01) ==
LOC: ANHED 16:31
PROVIDERS: Emergency Provider Physician Assistant; PCP Internal Medicine
DX: T83.098A Other mechanical complication of other urinary catheter, initial encounter (principal); I10 Essential (primary) hypertension; N40.0 Benign prostatic hyperplasia without lower urinary tract symptoms; F17.210 Nicotine dependence, cigarettes, uncomplicated; Z87.440 Personal history of urinary (tract) infections; Y84.6 Urinary catheterization as the cause of abnormal reaction of the patient, or of later complication, without mention of misadventure at the time of the procedure
CPT/HCPCS: 99282

== ENCOUNTER 2023-04-01 18:44 | Emergency (ER) | payer MEDICARE, MEDICAID, SELFPAY ==
--- NOTE | 2023-04-01 19:12 | ED.MALEGU ---
HPI - Male Genitourinary General Chief complaint: Urogenital-Male Stated complaint: urinary issue Time Seen by Provider: 04/01/23 19:12 Source: patient Mode of arrival: ambulatory Limitations: no limitations History of Present Illness HPI Narrative: 77-year-old male presents with complaint of urinary frequency, urgency, decreased output. Patient had Chan catheter removed this morning at urology office. States over the for 6 hours after having catheter removed he measured his urine and output was 500-600 mls. He states he began to have urinary urgency, decreased output 4-5 hours ago. Afebrile. [facility] urology office was already closed and he was unable to contact anyone there. No abdominal or back pain. All systems reviewed and negative except as noted above. Related Data Home Medications Medication Instructions Recorded Confirmed clopidogrel 75 mg tablet 75 mg PO DAILY 12/13/20 01/25/22 furosemide 40 mg tablet 40 mg PO DAILY 12/13/20 01/25/22 nebivolol 10 mg tablet (Bystolic) 10 mg PO DAILY 12/13/20 01/25/22 pravastatin 40 mg tablet 40 mg PO DAILY 12/13/20 01/25/22 amlodipine 10 mg tablet 10 mg DIRECTED 01/25/22 01/25/22 ezetimibe 10 mg tablet 10 mg DIRECTED 01/25/22 01/25/22 sacubitril 24 mg-valsartan 26 mg 1 tablet DIRECTED 01/25/22 01/25/22 tablet (Entresto) spironolactone 50 mg tablet mg 08/14/22 finasteride 5 mg tablet mg 04/01/23 tamsulosin 0.4 mg capsule mg PO 04/01/23 Allergies Allergy/AdvReac Type Severity Reaction Status Date / Time niacin Allergy Flushing Verified 02/25/23 13:38 Review of Systems Review of Systems: CONSTITUTIONAL: Denies fever, chills, or sweats. EYES: Denies visual changes, redness, or discharge. ENT: Denies rhinorrhea, congestion, sore throat, or otalgia. CARDIOVASCULAR: Denies chest pain, palpitations, or edema. RESPIRATORY: Denies cough or dyspnea. GASTROINTESTINAL: Denies abdominal pain, nausea, vomiting, or diarrhea. GENITOURINARY: Denies dysuria or hematuria. Reports urinary frequency, urgency, decreased output. SKIN: Denies rash or itching. MUSCULOSKELETAL: Denies back pain, joint pain, or myalgia. NEUROLOGIC: Denies headache, numbness, or weakness. PSYCHIATRIC: Denies anxiety or depression. All other systems reviewed are negative, except as documented in HPI. [facility] Past Medical History Medical History Enlarged prostate History of cataract History of recurrent UTIs Hypertension Surgical History Surgical History History of hernia repair Family History Family History Mother Family history non-contributory Social History Social History Smoking packs per day: 1 Smoking cigarettes per day: 20.0 Smoking status: Current every day smoker Tobacco type: cigarettes Alcohol intake: current Substance use: never Living arrangements: alone Gender identity (if verbalized by the patient): Male Comments At time of signature, agree with nursing past medical, surgical, social and family history. There is no relevant family history pertinent to the presenting complaint. Exam Narrative: GENERAL: This is a well-nourished, well-developed patient, in no apparent distress. HEAD: normocephalic, atraumatic. EYES: PERRL. Sclera clear/white. Vision is grossly intact. EARS: External ears normal NOSE: External nose normal NECK: Neck supple, non-tender without lymphadenopathy, masses or thyromegaly. CARDIOVASCULAR: Regular rate and rhythm without murmurs, gallops, or rubs. RESPIRATORY: Clear to auscultation. Breath sounds equal bilaterally. No wheezes, rales, or rhonchi. GASTROINTESTINAL: Abdomen soft, non-tender, nondistended. Bowel sounds are active. No hepato-splenomegaly, or palpable masses. No guarding.
[2023-04-01 19:22] VITALS: BP 162/64; PULSE 102; RESP 20; TEMP 37.2; O2SAT 96
== END 2023-04-01 19:36 | disposition home or self-care (01) ==
PROVIDERS: Emergency Provider Nurse Practitioner Family; PCP Internal Medicine
DX: N39.0 Urinary tract infection, site not specified (principal); I10 Essential (primary) hypertension; F17.210 Nicotine dependence, cigarettes, uncomplicated; Z79.899 Other long term (current) drug therapy
CPT/HCPCS: 81003; 87077; 87086; 87186; 99213; G0463

== ENCOUNTER 2023-04-01 22:49 | Emergency (ER) | payer MEDICARE, MEDICAID, SELFPAY ==
[2023-04-01 22:53] VITALS: BP 167/69; PULSE 85; RESP 20; TEMP 36.9; O2SAT 99
[2023-04-02 02:45] VITALS: BP 146/65; PULSE 87; RESP 17; O2SAT 99
[2023-04-02 02:50] LABS: Appearance Urine Clear (Clear); Bacteria Urine 4+ /hpf; Bilirubin Urine Negative (Negative); Blood Urine 2+ (Negative); Color Urine Yellow (Yellow); Glucose Urine UA Trace mg/dL (Negative); Ketones Urine Negative (Negative); Leukocyte Esterase Ur 2+ LEU/UL (Negative); Nitrate Urine Positive (Negative); Non Pathogenic Casts 0-2; Protein Urine Negative (Negative); Specific Grav Ur 1.011 (1.001-1.035); Squamous Epithelial Cell Urine None seen /hpf (Few); Urobilinogen Urine 0.2 mg/dL (<2.0); WBC Urine 51-100 /hpf; pH Urine 5.5 (5.0-9.0)
[2023-04-02 02:59] LABS: Add Urine Microscopic? YES
--- NOTE | 2023-04-02 03:09 | ED.GENADULT ---
HPI - General Adult General Chief complaint: Urogenital-Male Stated complaint: cant urinate Time Seen by Provider: 04/02/23 02:19 History of Present Illness HPI narrative: patient is a 77-year-old gentleman who presents emerged from with chief complaint of urinary retention patient recently had a Chan catheter was removed by Urology after he had urinary retention. The patient states that his eating is having difficulty urinating went to Urgent Care was diagnosed with the UTI and started on Cipro. Patient reports that he has been unable to urinate for several hours and came to the emergency department. Related Data Home Medications Medication Instructions Recorded Confirmed clopidogrel 75 mg tablet 75 mg PO DAILY 12/13/20 01/25/22 furosemide 40 mg tablet 40 mg PO DAILY 12/13/20 01/25/22 nebivolol 10 mg tablet (Bystolic) 10 mg PO DAILY 12/13/20 01/25/22 pravastatin 40 mg tablet 40 mg PO DAILY 12/13/20 01/25/22 amlodipine 10 mg tablet 10 mg DIRECTED 01/25/22 01/25/22 ezetimibe 10 mg tablet 10 mg DIRECTED 01/25/22 01/25/22 sacubitril 24 mg-valsartan 26 mg 1 tablet DIRECTED 01/25/22 01/25/22 tablet (Entresto) spironolactone 50 mg tablet mg 08/14/22 finasteride 5 mg tablet mg 04/01/23 tamsulosin 0.4 mg capsule mg PO 04/01/23 Allergies Allergy/AdvReac Type Severity Reaction Status Date / Time niacin Allergy Flushing Verified 04/02/23 02:06 Review of Systems Review of Systems: A 10 system review of systems was completed on the patient and is negative except for what is stated in the HPI. Nursing and ancillary documentation was reviewed. PMFSH Past Medical History Medical History Enlarged prostate History of cataract History of recurrent UTIs Hypertension Surgical History Surgical History History of hernia repair Family History Family History Mother Family history non-contributory Social History Social History Smoking packs per day: 1 Smoking cigarettes per day: 20.0 Smoking status: Current every day smoker Tobacco type: cigarettes Alcohol intake: current Substance use: never Living arrangements: alone Gender identity (if verbalized by the patient): Male Exam Narrative: GENERAL: Well-appearing, well-nourished, and in no acute distress. HEAD: Normocephalic, atraumatic. EYES: PERRLA and EOMI. ENT: Nares clear, no rhinorrhea or epistaxis. Mucous membranes moist. NECK: Supple. CHEST: Clear to auscultation. No respiratory distress. HEART: Regular rate and rhythm. No murmur heard. Normal peripheral pulses. ABDOMEN: Soft, nontender, nondistended, normal active bowel sounds. EXTREMITIES: Normal range of motion. No edema. SKIN: Warm, dry, no rash. NEURO: No focal deficits. Alert and oriented x3. PSYCH: Normal mood and affect. Course Vital Signs Vital signs: Vital Signs Temperature 36.9 C 04/01/23 22:53 Pulse Rate 85 04/01/23 22:53 Respiratory Rate 20 04/01/23 22:53 Blood Pressure 167/69 H 04/01/23 22:53 Pulse Oximetry 99 04/01/23 22:53 Temperature 36.9 C 04/01/23 22:53 Pulse Rate 87 04/02/23 02:45 Respiratory Rate 17 04/02/23 02:45 Blood Pressure 146/65 H 04/02/23 02:45 Pulse Oximetry 99 04/02/23 02:45 Medical Decision Making [facility] Narrative Medical decision making narrative: the result as fluids BPH, UTI, urinary retention a Chan catheter was placed the patient had relief of his urinary retention. Patient was started on antibiotics by urgent care the patient will be continued on his antibiotics that he is prescribed and patient will be referred back to Urology. Vital Signs Vital Signs: Vital Signs Temperature 36.9 C 04/01/23 22:53 Pulse Rate 85 04/01
== END 2023-04-02 04:08 | disposition home or self-care (01) ==
PROVIDERS: Emergency Provider Emergency Medicine; PCP Internal Medicine
DX: N40.1 Benign prostatic hyperplasia with lower urinary tract symptoms (principal); R33.8 Other retention of urine; I10 Essential (primary) hypertension; H26.9 Unspecified cataract; F17.210 Nicotine dependence, cigarettes, uncomplicated; Z87.440 Personal history of urinary (tract) infections
CPT/HCPCS: 51702; 81001; 81003; 87077; 87086; 87186; 93005; 99283

== ENCOUNTER 2023-05-07 17:34 | Emergency (ER) | payer MEDICARE, MEDICAID, SELFPAY ==
--- NOTE | 2023-05-07 17:36 | ED.MALEGU ---
HPI - Male Genitourinary General Chief complaint: Urogenital-Male Stated complaint: UTI Time Seen by Provider: 05/07/23 17:36 Source: patient Mode of arrival: ambulatory Limitations: no limitations History of Present Illness HPI Narrative: Patient is a 77-year-old male who presents with burning with urination and cloudy urine. Patient has Chan catheter at this time with being followed by Urology, this catheter was placed 05/02. Patient has a cystoscopy scheduled for June. Patient has frequent UTIs and urinary retention due to prostate issues. Denies any fever, chills, nausea, vomiting, diarrhea, low back pain. Related Data Home Medications Medication Instructions Recorded Confirmed clopidogrel 75 mg tablet 75 mg PO DAILY 12/13/20 01/25/22 furosemide 40 mg tablet 40 mg PO DAILY 12/13/20 01/25/22 nebivolol 10 mg tablet (Bystolic) 10 mg PO DAILY 12/13/20 01/25/22 pravastatin 40 mg tablet 40 mg PO DAILY 12/13/20 01/25/22 amlodipine 10 mg tablet 10 mg DIRECTED 01/25/22 01/25/22 ezetimibe 10 mg tablet 10 mg DIRECTED 01/25/22 01/25/22 sacubitril 24 mg-valsartan 26 mg 1 tablet DIRECTED 01/25/22 01/25/22 tablet (Entresto) spironolactone 50 mg tablet 50 mg PO DAILY 08/14/22 finasteride 5 mg tablet 5 mg PO DAILY 04/01/23 tamsulosin 0.4 mg capsule 0.4 mg PO DAILY 04/01/23 Allergies Allergy/AdvReac Type Severity Reaction Status Date / Time niacin Allergy Flushing Verified 04/02/23 02:06 Review of Systems Review of Systems: All systems reviewed & are unremarkable except as noted in HPI and below Constitutional: Constitutional: Denies chills, Denies fever(s), Denies headache(s), Denies malaise and Denies weakness Eyes: Eyes: Denies change in vision, Denies eye discharge and Denies irritation ENT: Denies otalgia, Denies headache(s), Denies nasal congestion, Denies nasal discharge, Denies sinus pain and Denies sore throat Cardiovascular: Cardiovascular: Denies chest pain, Denies edema, Denies palpitations and Denies dyspnea Respiratory: Respiratory: Denies cough and Denies dyspnea Gastrointestinal: Gastrointestinal: Denies abdominal pain, Denies diarrhea, Denies nausea and Denies vomiting Genitourinary: Genitourinary: Denies hematuria, Reports dysuria, Denies flank pain and Reports urinary urgency Musculoskeletal: Musculoskeletal: Denies back pain and Denies numbness Integumentary/Breasts: Skin/Breast: Denies pruritus and Denies rash Neurologic: Denies headache(s), Denies numbness and Denies weakness Psychiatric: Psychiatric: Reports no additional psychiatric complaints Endocrine: Endocrine: Denies palpitations PMFSH Past Medical History Medical History Enlarged prostate History of cataract History of recurrent UTIs Hypertension Surgical History Surgical History History of hernia repair Family History Family History Mother Family history non-contributory Social History Social History Smoking packs per day: 1 Smoking cigarettes per day: 20.0 Smoking status: Current every day smoker Tobacco type: cigarettes Alcohol intake: current Substance use: never Living arrangements: alone Gender identity (if verbalized by the patient): Male Comments At time of signature, agree with nursing past medical, surgical, social and family history. There is no relevant family history pertinent to the presenting complaint. Exam Const: General: cooperative, healthy appearing, comfortable, no acute distress and well nourished Nutritional Appearance: well nourished Orientation/consciousness: patient oriented x3 HENMT: Head: normocephalic and atraumatic Ears: external ears normal Face/Nose/Sinus: Normal external nose present, Normal nares present and normal facial exam Face
[2023-05-07 17:50] VITALS: BP 128/60; PULSE 67; RESP 16; TEMP 35.9; O2SAT 99
[2023-05-07 17:54] VITALS: BP 128/60; PULSE 67; RESP 16; TEMP 35.9; O2SAT 99
== END 2023-05-07 18:39 | disposition home or self-care (01) ==
PROVIDERS: Emergency Provider Nurse Practitioner Family; PCP Internal Medicine
DX: T83.511A Infection and inflammatory reaction due to indwelling urethral catheter, initial encounter (principal); N39.0 Urinary tract infection, site not specified; I10 Essential (primary) hypertension; F17.210 Nicotine dependence, cigarettes, uncomplicated
CPT/HCPCS: 81003; 87077; 87086; 87186; 99213; G0463

== ENCOUNTER 2023-07-22 13:37 | Outpatient (CLI) | payer MEDICARE, MEDICAID, SELFPAY ==
--- NOTE | ~2023-07-22 | PE_ITS ---
EXAMINATION: PET_PETPSMAST_PT DATE: 07/22/2023 15:50 INDICATION: Prostate cancer TECHNIQUE: 5.018 mCi of pipflufolastat F-18 (18-F-DCFPyL) was administered i.v. Low dose computed to mography (CT) images were acquired from the base of the brain to the base of the brain to the proxima l thighs for attenuation correction and anatomic localization. Positron emission tomography (PET) brenda ges were acquired in the same distribution beginning 72 minutes after injection. Images including fus ed PET/CT images were reconstructed in axial, coronal, and sagittal planes. Automated exposure contro l technique was employed. The dose-length product was 741.65mGy-cm. COMPARISON: None FINDINGS: Head/neck: Typical pattern of symmetric physiologic increased activity in the lacrimal, parotid and submandibula r glands as well as along the mucosa of the nasal and oral cavities, the reji-, naso- and hypopharynx, the glottis and esophagus. No pathologically enlarged cervical lymphadenopathy or suspicious foci of increased uptake in the visualized head or neck. Chest: Mild emphysema. Mild dependent atelectasis in the bilateral lower lobes. Heart size is normal. No per icardial effusion. Atherosclerotic coronary artery calcification. Thoracic aorta is normal in caliber . No pathologically enlarged or PSMA avid thoracic lymphadenopathy. Abdomen/pelvis/proximal thighs: Physiologic renal accumulation and excretion of activity in the kidneys, bladder and along portions o f ureters. Photopenic defect associated with a 1 cm low-attenuation cyst in the left kidney. There is prostatomegaly measuring 5.9 x 5.4 cm and which impresses upon the base of the bladder. There are so me gas in the bladder along with a Chan catheter. The prostatic urethra as indicated by the Chan ca theter is deviated towards the right with large region of increased PSMA activity at the left side of the prostate with maximal SUV of 32.7 consistent with primary prostate cancer. There are multiple enlarged and PSMA avid pelvic lymph nodes. For reference this includes a 4.1 x 3.1 cm conglomeration of right lymph node situated between the right external and internal iliac vessels with maximal SUV of 42.3, a contralateral 3.3 x 2.4 cm lymph node between the left external and inte rnal iliac vessels with maximal SUV of 49.2, a 2.1 x 1.8 cm left internal iliac chain lymph node with maximal SUV of 42.5 and bilateral common iliac chain lymph nodes measuring 2.6 x 1.9 cm with maximal SUV of 33.7 on the right and 10 x 9 mm with maximal SUV of 23.8 on the left. No pathologically enlar ged or abnormally PSMA avid abdominal lymphadenopathy. Normal degree and slightly heterogenous pattern of increased uptake throughout the liver and spleen w ithout radiologic correlate or dominant PSMA avid lesion. The gallbladder, pancreas and right adrenal gland are normal. 1.2 cm left adrenal nodule without PSMA activity most likely an adenoma. Moderate uptake scattered throughout the bowels with typical duodenal and proximal jejunal predominance and wi thout radiologic correlate, also likely physiologic. Musculoskeletal: There are several PSMA avid bone lesions. 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 There is associated sclerosis along with some osteolysis which permeative appearance to the anterior cortex placing this lesion at increased risk of pathologic fracture. The second most prominent with more subtle osteolysis and sclerosis seen at t he right posterior iliac spine with maximal SUV of 39.4. Additional smaller PSMA avid lesions are see n at the left femoral head and at the posterior aspect of the S1 vertebral body. There is severe spon dylosis throughout the cervical, thoracic and lumbar spine with scattered Modic type III sclerotic en dplate changes but without abnormal PSMA up
== END 2023-07-22 13:38 | disposition home or self-care (01) ==
PROVIDERS: PCP Internal Medicine; Visit Provider Urology
DX: C61 Malignant neoplasm of prostate (principal); R59.0 Localized enlarged lymph nodes; M89.9 Disorder of bone, unspecified
CPT/HCPCS: 78815; A9595; A9596

== ENCOUNTER 2023-12-10 11:59 | Emergency (ER) | payer MEDICARE, MEDICAID, SELFPAY ==
[2023-12-10 12:16] VITALS: BP 152/71; PULSE 72; RESP 14; TEMP 36.6; O2SAT 95
--- NOTE | 2023-12-10 12:17 | ED.MALEGU ---
HPI - Male Genitourinary General Chief complaint: Urogenital-Male Stated complaint: urinary issue Time Seen by Provider: 12/10/23 12:21 Source: patient, RN notes reviewed and old records reviewed Mode of arrival: ambulatory Limitations: no limitations History of Present Illness HPI Narrative: 78-year-old male presents to the [facility] with urinary issues. Patient is a very poor historian. States he might have urinated this morning, unsure. States for a week he has had urgency but then unable to urinate. States he has a history of prostate cancer that has progressed into his bones. Last week underwent radiation therapy. Has a history of UTIs, multi-drug resistant Patient reports that due to urinary issues he did have a catheter from February of 2023 till September of 2023 Patient has some suprapubic tenderness and is unable to urinate in clinic. Onset (ago): week(s) (1) Related Data Home Medications Medication Instructions Recorded Confirmed enzalutamide 80 mg tablet (Xtandi) 160 mg PO DAILY 10/25/23 12/10/23 aspirin 81 mg tablet,delayed 81 mg PO DAILY 11/26/23 12/10/23 release leuprolide acetate (6 month) 45 mg 45 mg subcut [id number] 11/26/23 12/10/23 (6 month) subcutaneous syringe (Eligard) sacubitril 24 mg-valsartan 26 mg 1 tablet PO BID 11/26/23 12/10/23 tablet (Entresto) Allergies Allergy/AdvReac Type Severity Reaction Status Date / Time niacin Allergy Flushing Verified 12/10/23 12:02 Review of Systems Review of Systems: All systems reviewed & are unremarkable except as noted in HPI and below Cardiovascular: Cardiovascular: Reports no additional cardiovascular complaints, Denies chest pain and Denies dyspnea Respiratory: Respiratory: Reports no additional respiratory complaints, Denies chest congestion, Denies cough and Denies dyspnea Gastrointestinal: Gastrointestinal: Reports as per HPI, Reports abdominal pain (Suprapubic discomfort), Denies nausea and Denies vomiting Genitourinary: Genitourinary: Reports as per HPI, Reports oliguria and Reports other (Unable to urinate, states feels like he has to go) Musculoskeletal: Musculoskeletal: Reports no additional musculoskeletal complaints Integumentary/Breasts: Skin/Breast: Reports system reviewed and no additional complaints, except as docu Neurologic: Reports system reviewed and no additional complaints, except as documented Psychiatric: Psychiatric: Reports no additional psychiatric complaints Allergic/Immunologic: Allergic/Immunologic: Reports no additional allergic/immunologic complaints FOR[facility]LY [facility] Past Medical History Medical History (Updated 12/10/23 @ 13:01 by Kerri Lawrence APRN) Bone cancer Enlarged prostate History of cataract History of recurrent UTIs Hypertension Surgical History Surgical History History of hernia repair Family History Family History Mother Family history non-contributory Cerebrovascular accident Father Cerebrovascular accident Malignant neoplasm of prostate Social History Social History Smoking packs per day: 1 Smoking cigarettes per day: 20.0 Smoking status: Current every day smoker Tobacco type: cigarettes Alcohol intake: current Substance use: never Living arrangements: alone Gender identity (if verbalized by the patient): Male Comments At the time of my signature, I reviewed and agree with the nursing past medical, surgical, social, and family history. There is no relevant family history pertinent to the patient complaint. Exam Const: General: cooperative, no acute distress, well developed, alert, ill appearing chronically, poor hygiene, uncomfortable and well nourished Nutritional Appearance: malnourished Orientation/consciousness: patient oriented x3 Limitations: no limitations HENMT: Head: normal to inspection
[2023-12-10 12:56] LABS: EDUAAPPEAR Cloudy; EDUABILI 1+; EDUABLOOD 2+; EDUACOLOR1 Amber; EDUAGLUCOSE Negative; EDUAKETONE Negative; EDUALEUKO 1+; EDUANITRATE Negative; EDUAPROTEIN 3+; EDUASPGRAVITY 1.025
== END 2023-12-10 13:05 | disposition home or self-care (01) ==
PROVIDERS: Emergency Provider Nurse Practitioner
DX: R33.9 Retention of urine, unspecified (principal); N30.01 Acute cystitis with hematuria; C61 Malignant neoplasm of prostate; C79.51 Secondary malignant neoplasm of bone; F17.210 Nicotine dependence, cigarettes, uncomplicated; I10 Essential (primary) hypertension; Z79.82 Long term (current) use of aspirin
CPT/HCPCS: 81003; 87086; 87088; 99213; G0463

== ENCOUNTER 2023-12-13 09:40 | Outpatient (CLI) | payer MEDICARE, MEDICAID, SELFPAY ==
--- NOTE | 2023-12-13 09:44 | ECHO_ITS ---
Patient Info Name: Ricardo Khan Age: 78 years : 1945 Gender: Male Ht: 67 in Wt: 150 lbs BSA: 1.80 m2 HR: 47 bpm BP: 143 / 76 mmHg Technical Quality: Good Exam Date: 12/13/2023 9:50 AM Exam Location: Echo Lab Patient Status: Outpatient Admit Date: 12/13/2023 Staff Ordering Physician: Lux Castrejon DO Print Designer: Galina Levin RDCS Attending Provider: Lux Castrejon DO Referring Physician: Cash COYNE; Exam Type: CA echo doppler color flow Study Info Indications R06.09 - Other forms of dyspnea Complete two-dimensional, color flow and Doppler transthoracic echocardiogram is performed. Strain analysis performed. Summary 1. Complete two-dimensional, color flow and Doppler transthoracic echocardiogram is performed. 2. Left ventricular chamber dimension is normal. 3. Left ventricular systolic function is normal, estimated at 60-65%. 4. The left ventricular diastolic function is grade I diastolic dysfunction. 5. Global longitudinal strain is abnormal at -15.7%. 6. There is mild aortic valve sclerosis. 7. There is mild mitral valve regurgitation. 8. There is mild tricuspid valve regurgitation. 9. No pulmonary hypertension, estimated pulmonary arterial systolic pressure is 28 mmHg. Left Ventricle Tissue doppler E/e' was not measured. Global longitudinal strain is abnormal at -15.7%. Left ventricular chamber dimension is normal. Left ventricular systolic function is normal, estimated at 60-65%. The left ventricular diastolic function is grade I diastolic dysfunction. Right Ventricle Right ventricular systolic function is normal and with normal TAPSE 2.6 cm. Right ventricular chamber dimension is normal. Left Atria Left atrial chamber dimension is normal. Right Atria Right atrial chamber dimension is normal. Aortic Valve The aortic valve is trileaflet. There is mild aortic valve sclerosis. There is no aortic valve stenosis. There is no aortic valve regurgitation. Pulmonic Valve There is no pulmonic regurgitation. Mitral Valve There is no mitral valve stenosis. There is mild mitral valve regurgitation. Tricuspid Valve There is mild tricuspid valve regurgitation. No pulmonary hypertension, estimated pulmonary arterial systolic pressure is 28 mmHg. Pericardium/Pleural There is no pericardial effusion. Inferior Vena Cava Normal inferior vena cava with >50% collapse upon inspiration consistent with normal right atrial pressure, 5 mmHg. Aorta The aortic root size at the sinus of Valsalva is normal. Left Ventricular Outflow Tract Name Value Normal LVOT 2D LVOT Diameter 2.0 cm LVOT Doppler LVOT Peak Gradient 5 mmHg LVOT Mean Gradient 2 mmHg LVOT VTI 24 cm LVOT VTI/AV VTI Ratio 0.9 LVOT Stroke Volume 74 ml LVOT CO 3.4 l/min LVOT CI 1.9 l/min/m2 Pulmonic Valve Name Value Normal RVOT Dop
== END 2023-12-13 09:41 | disposition home or self-care (01) ==
LOC: ANHCARD 09:42
PROVIDERS: PCP Nurse Practitioner Family; Visit Provider Internal Medicine Cardiovascular Disease
DX: R06.09 Other forms of dyspnea (principal); I08.3 Combined rheumatic disorders of mitral, aortic and tricuspid valves
CPT/HCPCS: 93306

== ENCOUNTER 2024-01-28 13:55 | Outpatient (CLI) | payer MEDICARE, MEDICAID, SELFPAY ==
--- NOTE | ~2024-01-28 | US_ITS ---
EXAMINATION: US venous doppler LE RT DATE: 01/28/2024 14:43 INDICATION: Right lower limb pain and swelling. Other specified soft tissue disorders. TECHNIQUE: Grayscale ultrasound images without and with compression and Doppler ultrasound images of the right lower extremity veins were obtained. COMPARISON: None. FINDINGS: The visualized portions of right common femoral vein, profunda (deep) femoral vein, femoral vein, pop liteal vein, peroneal veins, posterior tibial veins, and greater saphenous vein outflow are patent. IMPRESSION: 1. No deep venous thrombosis. Reviewed, dictated and finalized at location A.
== END 2024-01-28 13:56 | disposition home or self-care (01) ==
PROVIDERS: PCP Nurse Practitioner Family; Visit Provider Nurse Practitioner Family
DX: M79.89 Other specified soft tissue disorders (principal)
CPT/HCPCS: 93971

== ENCOUNTER 2025-03-02 13:30 | Outpatient (RCR) | payer MEDICARE, SELFPAY ==
--- NOTE | 2024-12-14 15:40 | OPREHPOC ---
Outpatient Therapy Plan of Care This is a Multidisciplinary Plan of Care that may contain components documented by all disciplines (PT, OT, and ST.) PT Problem 1 PT Problem #1 Knowledge Deficit PT Goal 1 Goal / Goal Update 1* independent with compression garment donning/ doffing 2* independent with self manual lymph drainage Target Visit 10 PT Problem 2 PT Problem #2 Impaired Lymphatic System PT Goal 1 Goal / Goal Update improve lymph flow to R and L LE's: circumferential measurement to 64 cm: 1* R 530 cm 2* L 525 cm no dry, flaking skin over lower legs 3* R 4* L minimal redness over lower legs 5* R 6* L 7* visible malleoli on R Target Visit 10
--- NOTE | 2024-12-14 15:41 | PTOPEVAL1 ---
Assessment and note entered by Lauren Garcia PT Evaluation Information Assessment Status Evaluation ICD-10 Condition Codes (PT) Difficulty Walking R26.2,Abnormalities of gait and mobility R26.9,Weakness R53.1,Lymphedema I89.0 Onset August 2024 Subjective Information had UTI and legs were more swollen, they are better and less swelling now, but still have skin troubles; use a cane for walking, unsteady and have had 2 falls in the past 6 months; hold onto furniture in the house too; have a walker at home, rarely use. activity: use cane; live alone; brother assists with transportation; independent with in home tasks and self care; has assist with yard work Reported Pain Level Pain Score 1: Self Report Additional Pain Score Comments discomfort in legs Assessment PT Clinical Summary Ricardo has the diagnosis of LE lymphedema. He reports more issues with skin and swelling over the past 4 months. He uses the cane for mobility and has had falls. 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 Education to pt and issued handouts: basic lymphedema education, plan for treatment, need for cast shoe and compression garments. With the evaluation, he has tissue changes over R and L lower legs with R more involved than L, with skin discoloration, fibrotic tissue and dry, flaking skin; R leg with dorsum of foot and malleoli edema. Skilled PT services are indicated for complete decongestive therapy: manual lymph drainage, compression wraps, LE exercises, intermittent compression pump and education for skin care, lymphedema management and compression garments. Plan of Care Interventions Intermittent Compression Pump,Manual Lymph Drainage,Patient/Caregiver Education,Therapeutic Exercise PT Services Indicated Yes Treatment Frequency and 3x/week for 10 visits Duration These treatments will address the objective and functional deficits as defined above. The patient will be advanced safely and appropriately in order for the patient to progress towards his/her prior level of function. Additional exercises will be introduced and as well as a comprehensive home exercise program upon discharge, if needed, ?to ensure carryover of functional gains achieved in the clinic. This treatment plan has been reviewed and agreement upon by the patient.
--- NOTE | 2025-03-02 14:20 | OPREHPOC ---
Outpatient Therapy Plan of Care This is a Multidisciplinary Plan of Care that may contain components documented by all disciplines (PT, OT, and ST.) PT Problem 1 PT Problem #1 Knowledge Deficit PT Goal 1 Goal / Goal Update 1* independent with compression garment donning/ doffing 2* independent with self manual lymph drainage 03-02-25 d/c goals met Target Visit 10 Progress Met PT Problem 2 PT Problem #2 Impaired Lymphatic System PT Goal 1 Goal / Goal Update improve lymph flow to R and L LE's: circumferential measurement to 64 cm: 1* R 530 cm 2* L 525 cm no dry, flaking skin over lower legs 3* R 4* L minimal redness over lower legs 5* R 6* L 7* visible malleoli on R 03-02-25 d/c goals met for R LE; L LE was not assessed today. Target Visit 10 Progress Met
--- NOTE | 2025-03-02 14:20 | PTOPDC ---
Assessment and note entered by Lauren Garcia, PT,CLT Assessment Status Discharge ICD-10 Condition Codes (PT) Difficulty Walking R26.2,Abnormalities of gait and mobility R26.9,Weakness R53.1,Lymphedema I89.0 Onset August 2024 Subjective Information R leg has been doing OK; foot dr got me a home pump and have been using it; have been elevating my legs. Reported Pain Level Pain Score 0: Self Report Assessment PT Clinical Summary Ricardo has received a total of 10 PT sessions for R lower leg lymphedema. He has improved with less red- brown discoloration of skin over lower leg; decreased circumferential measurements of leg, 64 cm from bottom of foot, 530.5 cm- decreased by 15.3 cm compared to initial evaluation; he has a velcro compression garment for lower leg and is independent with donning/doffing the garment. Education completed for HEP, skin care, lymphedema management. The foot dr has obtained a home intermittent compression pump for him. The goals were achieved. Discharge PT. Plan of Care PT Services Indicated No
== END 2025-03-02 14:46 | disposition home or self-care (01) ==
LOC: ANHPT 13:30
PROVIDERS: PCP Nurse Practitioner Family; Visit Provider Nurse Practitioner Family
DX: I89.0 Lymphedema, not elsewhere classified (principal); R26.2 Difficulty in walking, not elsewhere classified; R53.1 Weakness
CPT/HCPCS: 29581; 97016; 97110; 97140; 97161; 97530

== ENCOUNTER 2025-04-10 13:30 | Emergency (ER) | payer MEDICARE, SELFPAY ==
--- NOTE | 2025-04-10 13:32 | ED.MALEGU ---
HPI - Male Genitourinary General Chief complaint: Urogenital-Male Stated complaint: UTI Time Seen by Provider: 04/10/25 13:31 Source: patient and old records reviewed Mode of arrival: ambulatory Limitations: no limitations History of Present Illness HPI Narrative: Ricardo is a 79 year old male patient presenting to the clinic today with c/o possible UTI x 1 week. He reports is having burning with urination, urinary frequency, and and urgency. Denies any flank pain or abdominal pain. No nausea vomiting or diarrhea. No fevers or chills. History of recurrent UTIs, bladder CA, bone CA, and multiple drug-resistant urine cultures. 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 Patient denies any fever, chills, rash, headache, visual changes, dizziness, cough, shortness of breath, chest pain, palpitations, nausea, vomiting, diarrhea, constipation, abdominal pain PMFSH Past Medical History Medical History Bone cancer History of cataract History of recurrent UTIs Hypertension Enlarged prostate Surgical History Surgical History History of hernia repair Family History Family History Mother Family history non-contributory Cerebrovascular accident Father Cerebrovascular accident Malignant neoplasm of prostate Social History Social History Smoking packs per day: 1 Smoking cigarettes per day: 20.0 Smoking status: Current every day smoker Tobacco type: cigarettes Alcohol intake: current Substance use: never Living arrangements: alone Gender identity (if verbalized by the patient): Male Comments At the time of my signature, I reviewed and agree with the nursing past medical, surgical, social, and family history. There is no relevant family history pertinent to the patient complaint. Exam Narrative: General: Well-developed, well nourished, in no apparent distress. Head: Normocephalic, atraumatic. Cardio: Regular rate and rhythm, s1 and s2 normal, no murmur appreciated. Resp: Clear to auscultation bilaterally, no rhonchi, rales, wheezing or rubs. Abdomen: Soft, pliable, bowel sounds present in all quadrants, suprapubic tender to palpation, no organomegly, no CVAT tenderness. Course Course Level of Care: Express Care Visit Vital Signs Vital signs: Vital Signs Temperature 36.6 C 04/10/25 13:43 Pulse Rate 61 04/10/25 13:43 Respiratory Rate 18 04/10/25 13:43 Blood Pressure 108/66 04/10/25 13:43 Pulse Oximetry 97 04/10/25 13:43 Oxygen Delivery Room Air 04/10/25 13:43 Temperature 36.6 C 04/10/25 13:43 Pulse Rate 61 04/10/25 13:43 Respiratory Rate 18 04/10/25 13:43 Blood Pressure 108/66 04/10/25 13:43 Pulse Oximetry 97 04/10/25 13:43 Oxygen Delivery Room Air 04/10/25 13:43 [facility] Narrative Medical decision making narrative: At the time of visit patient is resting comfortably on the exam table. Patient appears to be nontoxic. C/o possible UTI x 1 week. He reports is having burning with urination, urinary frequency, and and urgency. Denies any flank pain or abdominal pain. No nausea vomiting or diarrhea. No fevers or chills. History of recurrent UTIs, bladder CA, bone CA, and multiple drug-resistant urine cultures. On exam patient has soft, pliable, nondistended abdomen, suprapubic tenderness to palpation, no CVAT tenderness, no organomegaly. Urine dip was ordered. Labs: Urine dip was positive for leukocytes, blood, ketones, bili, and protein. Nitrate negative. We will send urine for culture. Plan: I suspect patient has urinary tract infection. Prescription for ciprofloxacin was sent to the pharmacy. Recommend follow up with his PCP/urologist in 3-5 days. Go to the ED if symptoms worsen Supportive measures were discussed with the patient and they voiced understanding discharge instructions and agrees to treatment plan. Return precautions reviewed Differential Diagnosis Differential Diagnosis: Differential diagnostic considerations for male genitourinary issues include urinary tract infection, priapism, epididymitis, prostatitis, acute retention of urine, inguinal hernia, STI exposure, testicular torsion, Jace?s gangrene. Medical Records I have reviewed the following patient records and this information was taken into consideration when formulating the assessment and plan.: previous labs Discharge Plan Discharge Clinical Impression: Acute UTI Patient Disposition: Home Condition: Stable Instructions: Antibiotic Form, Urinary Tract Infection in Older Adults (ED) Additional Instructions: We will send urine for culture. Increase fluids and stay well hydrated Take ciprofloxacin as prescribed Wipe front to back. May use wet wipes. Avoid tub baths If sexually active- pee before and after intercourse. Wear cotton panties Avoid tight clothing up against the genitals Follow up with your PCP in 1 week if symptoms persist. Patient Language: Jordanian Prescriptions: New ciprofloxacin HCl [Cipro] 500 mg tablet 500 mg PO Q12H 7 Days Qty: 14 0RF No Action Xtandi 80 mg tablet 160 mg PO DAILY amlodipine 10 mg tablet 10 mg PO DIRECTED Qty: 90 1RF spironolactone 50 mg tablet 50 mg PO DAILY Qty: 90 1RF tamsulosin 0.4 mg capsule 0.4 mg PO DAILY Qty: 90 1RF sacubitril-valsartan [Entresto] 24-26 mg tablet 1 tablet PO BID Qty: 180 2RF furosemide 40 mg tablet See Rx Instructions .ROUTE .COMPLEX Qty: 90 0RF Dose Instruction: Take 1 tablet by mouth once daily Rx Instructions: Take 1 tablet by mouth BID cholecalciferol (vitamin D3) 25 mcg (1,000 unit) capsule 25 mcg PO DAILY Eligard (6 month) 45 mg syringe 45 mg subcut [id number] aspirin 81 mg tablet,delayed release (DR/EC) 81 mg PO DAILY cyanocobalamin (vitamin B-12) 1,000 mcg capsule 1,000 mcg PO DAILY Qty: 90 1RF clopidogrel 75 mg tablet 75 mg PO DAILY Qty: 90 0RF pravastatin 40 mg tablet See Rx Instructions .ROUTE .COMPLEX Qty: 90 0RF Dose Instruction: Take 1 tablet by mouth once daily Rx Instructions: Take 1 tablet by mouth once daily nebivolol 10 mg tablet See Rx Instructions .ROUTE .COMPLEX Qty: 90 0RF Dose Instruction: Take 1 tablet by mouth once daily Rx Instructions: Take 1 tablet by mouth once daily ezetimibe 10 mg tablet See Rx Instructions .ROUTE .COMPLEX Qty: 90 2RF Dose Instruction: Take 1 tablet by mouth once daily Rx Instructions: Take 1 tablet by mouth once daily Follow-up/Referrals: Josi Cruz APRN [Primary Care Provider, Internal Medicine] Time of Disposition: 13:59 Quality NIHSS Nursing Documentation ED NIHSS nursing documentation: reviewed/agree
[2025-04-10 13:43] VITALS: BP 108/66; PULSE 61; RESP 18; TEMP 36.6; O2SAT 97
[2025-04-10 13:51] LABS: EDUAAPPEAR Cloudy; EDUABILI 1+ (Negative); EDUABLOOD 2+ (Negative); EDUACOLOR1 Yellow; EDUAGLUCOSE Negative (Negative); EDUAKETONE 1+ (Negative); EDUALEUKO 1+ (Negative); EDUANITRATE Negative (Negative); EDUAPH 6.0; EDUAPROTEIN 3+ (Negative); EDUASPGRAVITY 1.030; EDUAUROBILI 1.0
[2025-04-10 13:51] LABS: EDUAAPPEAR Cloudy; EDUABILI 1+ (Negative); EDUABLOOD 2+ (Negative); EDUACOLOR1 Yellow; EDUAGLUCOSE Negative (Negative); EDUAKETONE 1+ (Negative); EDUALEUKO 1+ (Negative); EDUANITRATE Negative (Negative); EDUAPH 6.0; EDUAPROTEIN 3+ (Negative); EDUASPGRAVITY 1.030; EDUAUROBILI 1.0
== END 2025-04-10 14:05 | disposition home or self-care (01) ==
PROVIDERS: Emergency Provider Nurse Practitioner Family; PCP Nurse Practitioner Family
DX: N39.0 Urinary tract infection, site not specified (principal); F17.210 Nicotine dependence, cigarettes, uncomplicated; I10 Essential (primary) hypertension; N40.0 Benign prostatic hyperplasia without lower urinary tract symptoms; Z85.830 Personal history of malignant neoplasm of bone; Z85.51 Personal history of malignant neoplasm of bladder; Z79.82 Long term (current) use of aspirin
CPT/HCPCS: 81003; 87086; 99213; G0463